=== PATIENT | male | born 1985 | race Hispanic/Latino ===

== ENCOUNTER 2020-10-28 09:35 | Emergency (ER) | payer OTHER ==
[~2020-10-28] VITALS: Ht 177.8 cm; Wt 70.0 kg
[2020-10-28] MEDS ORDERED: BACTRIM DS1 TAB PO (10:43)
[2020-10-28] MEDS ORDERED: CEPHALEXIN500 M1 PO (10:43)
[2020-10-28 10:50] VITALS: BP 146/67
== END 2020-10-28 11:00 | disposition home or self-care (01) | DRG 603 ==
LOC: ED 09:35
PROC: 0H9KXZZ Drainage of Right Lower Leg Skin, External Approach (ICD-10-PCS; principal; 2020-10-28)
DX: L02.415 Cutaneous abscess of right lower limb (principal); S80.811A Abrasion, right lower leg, initial encounter; B95.1 Streptococcus, group B, as the cause of diseases classified elsewhere; W11.XXXA Fall on and from ladder, initial encounter; Y92.74 Orchard as the place of occurrence of the external cause; Y99.0 Civilian activity done for income or pay

== ENCOUNTER 2020-10-29 10:16 | Emergency (ER) | payer OTHER ==
[~2020-10-29] VITALS: Ht 177.8 cm; Wt 70.0 kg
[~2020-10-29 10:16] MED LIST: BACTRIM DS1 TAB PO; CEPHALEXIN500 M1 PO
[2020-10-29 11:07] VITALS: BP 131/77
== END 2020-10-29 11:07 | disposition home or self-care (01) | DRG 951 ==
LOC: ED 10:16
DX: Z48.01 Encounter for change or removal of surgical wound dressing (principal)